=== PATIENT | male | born 1995 | race Caucasian/White ===

== ENCOUNTER 2021-02-13 17:30 | Emergency (ER) | payer OTHER ==
[2021-02-13] MEDS ORDERED: SODIUM CHLORIDE 0.9% 500 ML INFUS.BAG IV ONE (17:45)
[2021-02-13] MEDS ORDERED: ONDANSETRON 4 MG/2 ML VIAL IVPUSH ONE (17:45)
[2021-02-13 17:57] VITALS: BP 110/60; PULSE 67; TEMP 99.1; BMI 24.7
[2021-02-13] MEDS ORDERED: ONDANSETRON 4 MG/2 ML VIAL ONE (18:06)
[2021-02-13] MEDS ORDERED: FAMOTIDINE 20 MG/50 ML IVPB 20 MG/50 ML MG IVPB ONE ×2 (18:11→18:16)
[2021-02-13 18:25] LABS: ALBUMIN 4.4 g/dl (3.4-5.0); CALCIUM 9.2 mg/dl (8.5-10); MAGNESIUM 1.7 mg/dL (1.8-2.4); TOT PROT 7.1 g/dl (6.4-8.2)
[2021-02-13] MEDS ORDERED: MAGNESIUM SULF 50% (8.12 MEQ/2 ML-1 GM VIAL) IVPB ONE (18:47)
[2021-02-13] MEDS ORDERED: MAGNESIUM 1GM/D5W - 2 GM/200 ML IVPB IVPB ONE (19:08)
[2021-02-13 19:46] LABS: HEMATOCRIT 44.9 % (35.4-49); HEMOGLOBIN 15.4 GM/dL (11.7-16.9); MCH 29.2 pg (25.7-33.7); MCHC 34.3 g/dl (32.0-35.9); MEAN CELL VOLUME 85.2 fl (80-96); MEAN PLT VOLUME 8.6 fl (7.5-11.1); PLATELET COUNT 216 10^3/uL (134-434); RBC 5.27 M/mm3 (4.00-5.60)
[2021-02-13 21:57] LABS: ANISOCYTOSIS 0; MACROCYTOSIS 0
== END 2021-02-13 19:48 | disposition home or self-care (01) ==
LOC: FER 17:30
PROC: 3E033NZ Introduction of Analgesics, Hypnotics, Sedatives into Peripheral Vein, Percutaneous Approach (ICD-10-PCS; principal; 2021-02-13)
PROC: 3E033GC Introduction of Other Therapeutic Substance into Peripheral Vein, Percutaneous Approach (ICD-10-PCS; 2021-02-13)
PROC: 3E033GC Introduction of Other Therapeutic Substance into Peripheral Vein, Percutaneous Approach (ICD-10-PCS; 2021-02-13)
DX: R55 Syncope and collapse (principal); R11.0 Nausea; R19.7 Diarrhea, unspecified
CPT/HCPCS: 36415; 80053; 83690; 83735; 85025; 99284-25

== ENCOUNTER 2022-01-15 15:37 | Emergency (ER) | payer OTHER ==
[2022-01-15] MEDS ORDERED: ACETAMINOPHEN 1000 MG/100 ML BAG IVPB ONE (15:54)
[2022-01-15] MEDS ORDERED: METOCLOPRAMIDE HCL INJECTION 10 MG/2 ML VIAL IVPB ONE (15:54)
[2022-01-15] MEDS ORDERED: SODIUM CHLORIDE 1,000 ML IV STA (15:54)
[2022-01-15 16:12] VITALS: BP 118/73; PULSE 72; RESP 20; TEMP 98.9; BMI 25.4
[2022-01-15] MEDS ORDERED: METOCLOPRAMIDE HCL INJECTION 10 MG/2 ML VIAL ONE (16:14)
[2022-01-15] MEDS ORDERED: ACETAMINOPHEN INJECTION 100 ML IVPB ONE (16:15)
[2022-01-15 16:30] LABS: HEMOGLOBIN 13.1 G/dL (11.7-16.9); MCH 29.7 pg (25.7-33.7); MCHC 34.6 g/dl (32.0-35.9); MEAN PLT VOLUME 8.1 fl (7.5-11.1); RBC 4.42 10^6/uL (4.00-5.60); WHITE BLOOD COUNT 6.1 10^3/uL (4.0-10.8)
[2022-01-15 16:43] LABS: PLATELET ESTIMATE ADEQUATE
[2022-01-15 16:48] LABS: ALBUMIN 4.4 g/dl (3.4-5.0); BILIRUBIN,TOTAL 0.7 mg/dl (0.2-1); CALCIUM 9.2 mg/dl (8.5-10); CREATININE 0.9 mg/dl (0.55-1.3); TOT PROT 6.8 g/dl (6.4-8.2)
[2022-01-15] MEDS ORDERED: KETOROLAC TROMETHAMINE 30 MG/1 ML VIAL IVPUSH ONE (18:11)
[2022-01-15] MEDS ORDERED: KETOROLAC TROMETHAMINE 15 MG/ML VIAL ONE (18:18)
== END 2022-01-15 19:52 | disposition home or self-care (01) ==
LOC: FER 15:37
PROC: 3E033GC Introduction of Other Therapeutic Substance into Peripheral Vein, Percutaneous Approach (ICD-10-PCS; principal; 2022-01-15)
DX: U07.1 COVID-19 (principal); R51.9 Headache, unspecified
CPT/HCPCS: 0241U-QW; 36415; 70450-TC; 80053; 85027; 96361; 96374; 96375; 99285-25